=== PATIENT | female | born 1940 | race Caucasian/White ===

== ENCOUNTER → 2016-12-27 | Outpatient (CLI) | payer OTHER ==
[2016-12-27 09:07] LABS: BILIRUBIN,TOTAL 0.7 mg/dL (0.3-1.2); CALCIUM 9.7 mg/dL (8.7-10.7); POTASSIUM 4.4 meq/L (3.8-5.2); TOTAL PROTEIN 6.5 g/dL (6.1-8.0)
== END ==
LOC: LAB 08:18
PROVIDERS: ATTEND Internal Medicine
DX: E78.5 Hyperlipidemia, unspecified (principal); I10 Essential (primary) hypertension
CPT/HCPCS: 36415; 80053; 80061; 82550

== ENCOUNTER → 2017-01-02 | Outpatient (CLI) | payer OTHER | LOC: MOB LAB 14:00 | PROVIDERS: ATTEND Internal Medicine | DX: R06.09 Other forms of dyspnea (principal) | CPT/HCPCS: 36415; 83880 ==

== ENCOUNTER → 2017-01-06 | Outpatient (CLI) | payer OTHER ==
[2017-01-06 08:41] LABS: BASOPHILS # (AUTO) 0.02 10*3/UL; BASOPHILS % (AUTO) 0.3 % (0-1); HEMATOCRIT 39.6 % (37.0-47.0); HEMOGLOBIN 13.2 g/dL (12.0-16.0); IMM GRAN % (AUTO) 0.2 % (0-5); IMM GRAN# (AUTO) 0.01 10*3/UL; LYMPHOCYTES # (AUTO) 2.25 10*3/uL; LYMPHOCYTES % (AUTO) 33.9 % (10-50); MEAN CORPUSCULAR HEMOGLOBIN 32.2 PG (27-31); MEAN CORPUSCULAR HGB CONC 33.3 g/dL (33-37); MEAN PLATELET VOLUME 9.1 FL (7.4-12.2); MONOCYTES # (AUTO) 0.44 10*3/UL (0.3-0.8); MONOCYTES % (AUTO) 6.6 % (5-15); NEUTROPHILS # (AUTO) 3.52 10*3/UL; RDW COEFFICIENT OF VARIATION 12.7 % (11.5-14.5); WHITE BLOOD COUNT 6.64 10^3/uL (4.8-10.8)
[2017-01-06 08:44] LABS: PLATELET MORPHOLOGY COMMENT NORMAL MORPHOLOGY (NORM)
[2017-01-06 09:16] LABS: BILIRUBIN,TOTAL 0.6 mg/dL (0.3-1.2); CALCIUM 9.5 mg/dL (8.7-10.7); POTASSIUM 4.5 meq/L (3.8-5.2); TOTAL PROTEIN 6.4 g/dL (6.1-8.0)
== END ==
LOC: LAB 08:23
PROVIDERS: ATTEND Internal Medicine
DX: Z85.3 Personal history of malignant neoplasm of breast (principal)
CPT/HCPCS: 36415; 80053; 85025; 86300